=== PATIENT | male | born 1980 | race Hispanic/Latino ===

== ENCOUNTER 2023-03-07 09:24 | Emergency (ER) | payer SELFPAY ==
[2023-03-07] MEDS ORDERED: Ketorolac Tromethamine 30 MG/ML VIAL ONE (10:01)
== END 2023-03-07 10:36 | disposition home or self-care (01) ==
LOC: ERS 09:24
DX: L03.116 Cellulitis of left lower limb (principal); I10 Essential (primary) hypertension
CPT/HCPCS: 96372; J1885